=== PATIENT | female | born 1930 | race African-American/Black ===

== ENCOUNTER 2019-08-25 12:48 | Inpatient (IN) | payer OTHER ==
[~2019-08-25] VITALS: Ht 149.9 cm; Wt 60.8 kg
[2019-08-25 14:03] LABS: BASOPHILS % 0.4 % (0.0-2.0); EOSINOPHILS % 1.8 % (0.0-5.0); HEMATOCRIT. 42.8 % (36.0-48.0); HEMOGLOBIN. 13.9 g/dL (12.0-16.0); MEAN CORPUSCULAR HEMOGLOBIN 30.6 pg (28.0-32.0); MEAN CORPUSCULAR VOLUME 94.1 fL (81.0-99.0); MEAN PLATELET VOLUME 10.3 fl (7.4-10.4); MONOCYTES % 9.5 % (2.0-8.0); NEUTROPHILS % 51.3 % (40.0-76.0); PLATELET 142 x1000/uL (130-400); RED BLOOD CELL COUNT 4.55 mill/uL (4.2-5.4); RED CELL DISTRIBUTION WIDTH 15.1 % (11.6-14.6)
[2019-08-25] MEDS ORDERED: SODIUM CHLORIDE 0.9% 500 ML IV ONE (14:15)
[2019-08-25 14:23] LABS: CHLORIDE 111 mEq/L (98-107)
[2019-08-25 17:47] LABS: CLARITY URINE CLEAR (CLEAR); COLOR URINE DARK YELLOW (YELLOW); KETONES URINE TRACE (NEGATIVE); LEUKOCYTE ESTERASE URINE NEGATIVE (NEGATIVE); NITRITE URINE NEGATIVE (NEGATIVE); OCCULT BLOOD URINE NEGATIVE (NEGATIVE); PROTEIN URINE NEGATIVE (NEGATIVE); SPECIFIC GRAVITY URINE 1.023 (1.005-1.030)
[2019-08-25] MEDS ORDERED: CEFAZOLIN 1000MG PREMIX 50 ML IV ONE (20:00)
[2019-08-25] MEDS ORDERED: HYDROCODONE/ACETAMINOPHEN 5/325MG TABLET PO ONE (20:00)
[2019-08-25] MEDS ORDERED: ONDANSETRON HCL 4MG/2ML INJ IV PRN (23:00)
[2019-08-25] MEDS ORDERED: ACETAMINOPHEN 325MG TABLET PO PRN (23:00)
[2019-08-25] MEDS ORDERED: CLONIDINE 0.1MG TABLET PO PRN (23:00)
[2019-08-25 23:28] VITALS: BP 116/70
[2019-08-25 23:40] VITALS: BP 116/70
[2019-08-26] MEDS ORDERED: FUROSEMIDE 40MG/4ML VIAL IV SCH (01:00)
[2019-08-26 04:00] VITALS: BP 126/82
[2019-08-26 06:00] LABS: CHLORIDE 112 mEq/L (98-107)
[2019-08-26 06:22] LABS: BASOPHILS % 0.3 % (0.0-2.0); HEMATOCRIT. 42.9 % (36.0-48.0); HEMOGLOBIN. 14.3 g/dL (12.0-16.0); LYMPHOCYTES % 25.6 % (20.0-50.0); MEAN CORPUSCULAR HEMOGLOBIN 31.4 pg (28.0-32.0); MEAN CORPUSCULAR VOLUME 94.3 fL (81.0-99.0); MEAN PLATELET VOLUME 11.3 fl (7.4-10.4); MONOCYTES % 11.9 % (2.0-8.0); NEUTROPHILS % 61.2 % (40.0-76.0); PLATELET 139 x1000/uL (130-400); RED BLOOD CELL COUNT 4.55 mill/uL (4.2-5.4); RED CELL DISTRIBUTION WIDTH 15.1 % (11.6-14.6)
[2019-08-26 08:00] VITALS: BP 133/82
[2019-08-26] MEDS: HEPARIN 5000 UNITS/ML VIAL SUBCUT SCH ×2 (10:20→21:00)
[2019-08-26] MEDS ORDERED: ASPIRIN 81MG EC TABLET PO SCH (11:30)
[2019-08-26 12:00] VITALS: BP 127/71
[2019-08-26] MEDS ORDERED: PNEUMOCOCCAL 23-VAL P-SAC VAC 0.5 ML IM ONE (12:00)
[2019-08-26] MEDS ORDERED: INFLUENZA VIRUS VACCINE(AFLURIA) 0.5ML SYR IM ONE (12:00)
[2019-08-26] MEDS ORDERED: HALOPERIDOL LACTATE 5MG/ML VIAL IM PRN (14:00)
[2019-08-26 16:00] VITALS: BP 123/87
[2019-08-26] MEDS: RISPERIDONE 0.5MG TABLET PO SCH ×2 (16:00→21:00)
[2019-08-26 20:00] VITALS: BP 147/89
[2019-08-26 22:29] VITALS: BP 142/85
== END 2019-08-27 00:08 | disposition short-term general hospital (02) | DRG 91 ==
LOC: ER 12:48 → 5WST 21:11 → EDBEDREQTM 21:16 → EDBEDREQ 21:16 → ENRESERV 22:39
PROVIDERS: ADMIT Internal Medicine; ATTEND Internal Medicine
DX: G92 Toxic encephalopathy (principal); I50.41 Acute combined systolic (congestive) and diastolic (congestive) heart failure; L97.918 Non-pressure chronic ulcer of unspecified part of right lower leg with other specified severity; E46 Unspecified protein-calorie malnutrition; L97.928 Non-pressure chronic ulcer of unspecified part of left lower leg with other specified severity; I11.0 Hypertensive heart disease with heart failure; H91.8X3 Other specified hearing loss, bilateral; I49.1 Atrial premature depolarization; I50.82 Biventricular heart failure; I87.2 Venous insufficiency (chronic) (peripheral); L08.9 Local infection of the skin and subcutaneous tissue, unspecified; I44.7 Left bundle-branch block, unspecified; R91.8 Other nonspecific abnormal finding of lung field; R26.89 Other abnormalities of gait and mobility; F03.90 Unspecified dementia, unspecified severity, without behavioral disturbance, psychotic disturbance, mood disturbance, and anxiety; Z68.27 Body mass index [BMI] 27.0-27.9, adult
CPT/HCPCS: 36415; 71045; 80053; 81003; 83735; 84484; 85025; 87070; 87075; 87077; 87186; 90686; 90732; 93005; 93306; 93970; 97022; 97162; 99285; J0690; J1630; J1644; J1940; J7040